=== PATIENT | female | born 1990 | race Caucasian/White ===

== ENCOUNTER 2020-12-29 13:41 | Outpatient (CLI) | payer OTHER, SELFPAY ==
--- NOTE | ~2020-12-29 | US_ITS ---
EXAMINATION: US art doppler w press CALE SANCHEZ EXAM DATE: 12/29/2020 14:30 INDICATION: Pain in lower limb . Left leg pain. Claudication at 2 blocks. TECHNIQUE: Segmental pressures and plethysmographic and Doppler waveforms of the brachial and lower e xtremity arteries were obtained. There is no prior study for comparison. FINDINGS: Right and left brachial artery pressures of 116 mm Hg and 116 mm Hg, respectively, are concordant (no rmal difference <= 30 mmHg). The right and left thigh-brachial pressure indices are 1.56, 1.42, resp ectively (normal > 1.2). RIGHT LEG: The ankle-brachial index (MELECIO) is 1.03 (normal >= 0.9-1). The great toe-brachial index (TBI) is 0.95 (normal >= 0.65). The lower extremity ratios, segmental pressure gradients as follows; Proximal superficial femoral artery:- 1.56 (181 mmHg). Distal superficial femoral artery: ----- 1.15 (133 mmHg). Popliteal: 1.19 (138 mmHg). Dorsalis pedis: 0.9 to (107 mmHg). Posterior tibial: 1.03 (120 mmHg). (Normal gradients <= 20-30 mmHg between adjacent levels on the same leg or the same levels on the two legs). Arterial waveforms are biphasic through posterior tibial, m onophasic dorsalis pedis. LEFT LEG: The ankle-brachial index (MELECIO) is 1.09 (normal >= 0.9-1). The great toe-brachial index (TBI) is 0.9 to (normal >= 0.65). The lower extremity ratios, segmental pressure gradients as follows; Proximal superficial femoral artery:- 1.42 (165 mmHg). Distal superficial femoral artery: ----- 1.08 (125 mmHg). Popliteal: 1.26 (146 mmHg). Dorsalis pedis: 1.05 (122 mmHg). Posterior tibial: 1.09 (127 mmHg). (Normal gradients <= 20-30 mmHg between adjacent levels on the same leg or the same levels on the two legs). Arterial waveforms are biphasic. IMPRESSION: 1. Right ankle-brachial index 1.03, normal. 2. Left ankle-brachial index 1.09, normal. 3. Segmental pressures as above. Reviewed, dictated and finalized at location B. SANDER RUBBER
== END 2020-12-29 13:42 | disposition home or self-care (01) ==
LOC: ANHIMG 13:45
PROVIDERS: PCP Nurse Practitioner Adult Health; Visit Provider Nurse Practitioner Adult Health
DX: M79.669 Pain in unspecified lower leg (principal)
CPT/HCPCS: 93923

== ENCOUNTER 2020-12-30 12:41 | Outpatient (CLI) | payer OTHER, SELFPAY ==
--- NOTE | 2020-12-30 | ECHO_ITS ---
Patient Info Name: Galina Escobedo Age: 30 years : 1990 Gender: Female Ht: 65 in Wt: 200 lbs BSA: 2.07 m2 HR: 62 bpm BP: 123 / 75 mmHg Technical Quality: Fair Exam Date: 12/30/2020 1:06 PM Exam Location: [facility] Pulmonary Patient Status: Outpatient Admit Date: 12/30/2020 Staff Ordering Physician: LeifAliza NP Splitting Machine Feeder: Florinda Edmonds RDCS Attending Provider: HeavenAliza NP Exam Type: CA echo doppler color flow Study Info Indications R60.0 - Localized edema Complete two-dimensional, color flow and Doppler transthoracic echocardiogram is performed. Summary 1. Complete two-dimensional, color flow and Doppler transthoracic echocardiogram is performed. 2. Left ventricular chamber dimension is normal. 3. Left ventricular systolic function is normal, estimated at 60-65%. 4. The left ventricular diastolic function is normal. 5. Global longitudinal strain is normal at -17.0%. Left Ventricle Tissue doppler is not performed. Global longitudinal strain is normal at -17.0%. Left ventricular chamber dimension is normal. Left ventricular systolic function is normal, estimated at 60-65%. The left ventricular diastolic function is normal. Right Ventricle Right ventricular chamber dimension is normal. Right ventricular systolic function is normal. Left Atria Left atrial chamber dimension is normal. Right Atria Right atrial chamber dimension is normal. Aortic Valve The aortic valve is trileaflet. There is no aortic valve stenosis. There is no aortic valve regurgitation. Pulmonic Valve There is no pulmonic regurgitation. Mitral Valve There is no mitral valve stenosis. There is no mitral valve regurgitation. Tricuspid Valve There is no tricuspid valve regurgitation. Pericardium/Pleural There is no pericardial effusion. Inferior Vena Cava Normal inferior vena cava with >50% collapse upon inspiration consistent with normal right atrial pressure, 5 mmHg. Aorta The aortic root size at the sinus of Valsalva is normal. Left Ventricular Outflow Tract Name Value Normal LVOT 2D LVOT Diameter 1.9 cm LVOT Doppler LVOT Peak Gradient 4 mmHg LVOT Mean Gradient 2 mmHg LVOT VTI 21 cm LVOT VTI/AV VTI Ratio 0.8 LVOT Stroke Volume 63 ml LVOT CO 4.4 l/min LVOT CI 2.1 l/min/m2 Pulmonic Valve Name Value Normal RVOT Doppler RVOT Peak Gradient 2 mmHg PV Doppler PV Peak Gradient 3 mmHg Mitral Valve Name
== END 2020-12-30 12:42 | disposition home or self-care (01) ==
LOC: ANHCARD 12:43
PROVIDERS: PCP Nurse Practitioner Adult Health; Visit Provider Nurse Practitioner Adult Health
DX: R60.0 Localized edema (principal)
CPT/HCPCS: 93306